=== PATIENT | female | born 1935 | race Caucasian/White ===

== ENCOUNTER → 2023-09-26 11:45 | Outpatient (REF) | payer MEDICARE, SELFPAY ==
[2023-09-26 12:44] LABS: % Eosinophils 7.8 % (0-6); % Immature Granulocytes 0.2 % (0-0.5); % Lymphocytes 27.8 % (20.5-51.1); % Monocytes 9.7 % (1.7-9.3); % Neutrophils 53.5 % (42.2-75.2); Absolute Basophils 0.1 10^3/uL (0-0.2); Absolute Eosinophils 0.5 10^3/uL (0-0.7); Absolute Lymphocytes 1.6 10^3/uL (1.2-3.4); Absolute Monocytes 0.6 10^3/uL (0.1-0.6); Absolute Neutrophils 3.1 10^3/uL (1.4-6.5); Hematocrit 36.5 % (37.0-47.0); Hemoglobin 12.1 g/dL (12.0-16.0); Mean Corp Hgb Conc. 33.2 g/dL (33.0-37.0); Mean Corpuscular Hgb 30.9 pg (27.0-31.0); Mean Corpuscular Volume 93.4 fL (81.0-99.0); Mean Platelet Volume 11.6 fL (7.4-10.4); Nucleated Red Blood Cells % 0 %; Platelet Count 256 10^3/uL (130-400); Red Blood Cell Count 3.91 10^6/uL (4.20-5.40); White Blood Cell Count 5.8 10^3/uL (4.8-10.8)
[2023-09-26 13:12] LABS: ALT (SGPT) 15 U/L (0-35); AST (SGOT) 25 U/L (14-36); Albumin 4.6 g/dl (3.5-5.0); Alkaline Phosphatase 59 U/L (38-126); Blood Urea Nitrogen 23 mg/dl (7-17); Calcium 10.3 mg/dl (8.4-10.2); Carbon Dioxide 23 mmol/L (22-30); Chloride 107 mmol/L (98-107); Glucose 100 mg/dl (70-99); Potassium 4.3 mmol/L (3.5-5.1); Sodium 138 mmol/L (135-145); Total Bilirubin 0.8 mg/dl (0.2-1.3); Total Protein 7.1 g/dl (6.3-8.2); eGFR 54.87
[2023-09-26 13:15] LABS: C-Reactive Protein < 5.00 mg/L (0.0-10.00)
[2023-09-26 14:46] LABS: Erythrocyte Sed Rate 24 mm/hour (0-20)
== END ==
LOC: REG 11:45
PROVIDERS: ATTENDING PHYSICIAN Internal Medicine; FAMILY PHYSICIAN Internal Medicine
DX: M05.79 Rheumatoid arthritis with rheumatoid factor of multiple sites without organ or systems involvement (principal); Z51.81 Encounter for therapeutic drug level monitoring
CPT/HCPCS: 36415; 80053; 85025; 85652; 86140

== ENCOUNTER → 2023-11-27 11:12 | Outpatient (REF) | payer MEDICARE, SELFPAY ==
[2023-11-27 12:57] LABS: TSH Reflex To Free T4 4.03 uIU/ml (0.47-4.68)
== END ==
LOC: REG 11:12
PROVIDERS: ATTENDING PHYSICIAN Hospitalist
DX: E03.9 Hypothyroidism, unspecified (principal)
CPT/HCPCS: 36415; 84443

== ENCOUNTER → 2024-01-01 08:19 | Outpatient (REF) | payer MEDICARE, SELFPAY ==
[2024-01-01 10:05] LABS: % Eosinophils 9.3 % (0-6); % Immature Granulocytes 0.4 % (0-0.5); % Monocytes 9.1 % (1.7-9.3); % Neutrophils 52.2 % (42.2-75.2); Absolute Basophils 0.1 10^3/uL (0-0.2); Absolute Eosinophils 0.5 10^3/uL (0-0.7); Absolute Lymphocytes 1.4 10^3/uL (1.2-3.4); Absolute Monocytes 0.5 10^3/uL (0.1-0.6); Absolute Neutrophils 2.7 10^3/uL (1.4-6.5); Hematocrit 38.2 % (37.0-47.0); Hemoglobin 12.2 g/dL (12.0-16.0); Mean Corp Hgb Conc. 31.9 g/dL (33.0-37.0); Mean Corpuscular Hgb 30.5 pg (27.0-31.0); Mean Corpuscular Volume 95.5 fL (81.0-99.0); Mean Platelet Volume 12.3 fL (7.4-10.4); Nucleated Red Blood Cells % 0 %; Platelet Count 236 10^3/uL (130-400); Red Cell Dist. Width 14.2 % (11.5-14.5); White Blood Cell Count 5.1 10^3/uL (4.8-10.8)
[2024-01-01 10:25] LABS: ALT (SGPT) 19 U/L (0-35); Albumin 4.2 g/dl (3.5-5.0); Alkaline Phosphatase 53 U/L (38-126); Blood Urea Nitrogen 19 mg/dl (7-17); Calcium 9.9 mg/dl (8.4-10.2); Carbon Dioxide 26 mmol/L (22-30); Chloride 107 mmol/L (98-107); Glucose 130 mg/dl (70-99); HDL Cholesterol 91 mg/dl; Potassium 4.4 mmol/L (3.5-5.1); Sodium 143 mmol/L (135-145); Total Bilirubin 0.7 mg/dl (0.2-1.3); Total Cholesterol 190 mg/dl (50-199); Total Protein 7.1 g/dl (6.3-8.2); eGFR 54.53
[2024-01-01 10:34] LABS: AST (SGOT) 28 U/L (14-36); LDL Cholesterol, Calculated 73 mg/dl; Triglyceride 131 mg/dl (10-149); Very Low Density Lipoprotein 26 mg/dl (0-30)
[2024-01-01 10:57] LABS: TSH 5.34 uIU/ml (0.47-4.68)
== END ==
LOC: REG 08:19
PROVIDERS: ATTENDING PHYSICIAN Nurse Practitioner
DX: E11.9 Type 2 diabetes mellitus without complications (principal); R53.83 Other fatigue; R73.02 Impaired glucose tolerance (oral); Z00.00 Encounter for general adult medical examination without abnormal findings; E78.5 Hyperlipidemia, unspecified
CPT/HCPCS: 36415; 80053; 80061; 82043; 82570; 83036; 84443; 85025

== ENCOUNTER → 2024-01-16 08:58 | Outpatient (REF) | payer MEDICARE, SELFPAY | LOC: WDC 08:58 | PROVIDERS: ATTENDING PHYSICIAN Nurse Practitioner | DX: N63.20 Unspecified lump in the left breast, unspecified quadrant (principal); N63.24 Unspecified lump in the left breast, lower inner quadrant | CPT/HCPCS: 76642; 77062; 77066 ==

== ENCOUNTER → 2024-03-27 08:54 | Outpatient (REF) | payer MEDICARE, SELFPAY ==
[2024-03-27 10:08] LABS: % Eosinophils 7.6 % (0-6); % Immature Granulocytes 0.3 % (0-0.5); % Lymphocytes 26.3 % (20.5-51.1); % Monocytes 8.4 % (1.7-9.3); % Neutrophils 55.4 % (42.2-75.2); Absolute Basophils 0.1 10^3/uL (0-0.2); Absolute Eosinophils 0.3 10^3/uL (0-0.7); Absolute Lymphocytes 0.9 10^3/uL (1.2-3.4); Absolute Monocytes 0.3 10^3/uL (0.1-0.6); Hematocrit 40.1 % (37.0-47.0); Hemoglobin 12.7 g/dL (12.0-16.0); Mean Corp Hgb Conc. 31.7 g/dL (33.0-37.0); Mean Corpuscular Hgb 29.5 pg (27.0-31.0); Mean Corpuscular Volume 93.3 fL (81.0-99.0); Mean Platelet Volume 11.4 fL (7.4-10.4); Nucleated Red Blood Cells % 0 %; Platelet Count 214 10^3/uL (130-400); Red Cell Dist. Width 13.8 % (11.5-14.5); White Blood Cell Count 3.6 10^3/uL (4.8-10.8)
[2024-03-27 11:19] LABS: Erythrocyte Sed Rate 11 mm/hour (0-20)
[2024-03-27 11:25] LABS: C-Reactive Protein < 5.00 mg/L (0.0-10.00)
[2024-03-27 11:42] LABS: ALT (SGPT) 17 U/L (0-35); AST (SGOT) 27 U/L (14-36); Albumin 4.3 g/dl (3.5-5.0); Alkaline Phosphatase 61 U/L (38-126); Blood Urea Nitrogen 15 mg/dl (7-17); Carbon Dioxide 27 mmol/L (22-30); Chloride 106 mmol/L (98-107); Glucose 151 mg/dl (70-99); Potassium 4.1 mmol/L (3.5-5.1); Sodium 142 mmol/L (135-145); Total Bilirubin 0.9 mg/dl (0.2-1.3); Total Protein 7.2 g/dl (6.3-8.2); eGFR 54.53
== END ==
LOC: REG 08:54
PROVIDERS: ATTENDING PHYSICIAN Internal Medicine; FAMILY PHYSICIAN Internal Medicine
DX: M05.79 Rheumatoid arthritis with rheumatoid factor of multiple sites without organ or systems involvement (principal); Z51.81 Encounter for therapeutic drug level monitoring
CPT/HCPCS: 36415; 80053; 85025; 85652; 86140

== ENCOUNTER 2024-09-12 14:25 | Emergency (ER) | payer MEDICARE, SELFPAY ==
[2024-09-12 14:27] VITALS: BP 178/84
--- NOTE | 2024-09-12 16:19 | ED.GENMED ---
History of Present Illness
General
Chief Complaint: Fall
Source: patient
Exam Limitations: none
Time Seen by Provider: 09/12/24 15:07
Nursing documentation reviewed up to this point in time: agreed with
History of Present Illness
History of Present Illness:
Patient is a 8-year-old female who presents to the ER for evaluation. Patient describes mechanical fall outside fell onto her face sustaining nose laceration, abrasion to left hand. She denies loss of consciousness. She is not on blood thinners.
She denies any headache / she c/o of nose pain and nosebleed from the right nares. Denies neck pain back pain. She is unsure of her last tetanus.
Past History
Past History
ED Past Medical History: HTN
ED Past Surgical History: Appendectomy, Orthopedic and Tonsilectomy
Social History
Tobacco: Non-smoker
Alcohol: None
Living: alone
Employment: Retired
Phy Exam
General Physical Exam
General Presentation: no apparent distress
General age: appears stated age
General Skin: warm and dry
General Habitus: elderly
General Mental: alert
General Hydration: appears well hydrated
ENT Exam
ENT Exam: other (+ tender to nose mild swellig to bridge of nose with 1 cm horizontal laceration to bridge of nose (partial thickness) right nares with bleeding )
Eye Exam
Eye Exam: PERRL, EOMI and other (+ ecchymosis to b/l inner eye region )
Eye Exam General: PERRL: bilateral and EOM intact: bilateral
Pupil Exam: Bilateral: round and reactive
Cardiovascular Exam
Cardiovascular Exam: regular rate/rhythm, no murmur and normal peripheral pulses
Pulmonary Exam
Pulmonary Exam: lungs clear and no respiratory distress
Neurological Exam
Neurological Exam: alert, oriented x3, no motor deficits and no sensory deficits
Musculoskeletal Exam
Musculoskeletal Exam: full ROM and other (Left hand along first metacarpal with distal radius ecchymotic and swollen with abrasion; abrasion to forehead no bony midline tenderness in cervical spine)
Skin Exam
Skin Exam: normal color and warm/dry
Psychiatric Exam
Psychiatric Exam: normal mood/affect
Course
Orders/Labs/Results
Orders:
Orders
09/12/24 15:56
CT Facial Bones W/o Iv Contras Urgent
Comment:
Reason For Exam: trauma
CT Head W/o Iv Contrast Urgent
Comment:
Reason For Exam: trauma
09/12/24 15:57
Wrist, Left 3 Views CR [CR Wrist - Left Min 3 Views] Urgent
Comment:
Reason For Exam: trauma
09/12/24 16:19
Hand, Left 3 View [CR Hand - Left Min 3 Views] Urgent
Comment:
Reason For Exam: trauma
09/12/24 16:27
Tetanus/Diphth/Acelpertussis [Adacel] 0.5 ml IM .ONCE ONE
09/12/24 17:22
Tranexamic Acid 250 mg TOPICAL NOW STA
09/12/24 17:24
Amoxicillin 875 mg/Clav 125 mg [Augmentin 875 mg/125 mg] 1 tablet PO NOW STA
Vital Signs
Initial and Last Documented VS:
Initial Vital Signs
Temp Pulse Resp BP Pulse Ox
98.3 F 82 16 178/84 98
09/12/24 14:27 09/12/24 14:27 09/12/24 14:27 09/12/24 14:27 09/12/24 14:27
Last Documented Vital Signs
Temp Pulse Resp BP Pulse Ox
98.3 F 82 18 164/82 97
09/12/24 14:27 09/12/24 18:30 09/12/24 18:30 09/12/24 18:30 09/12/24 18:30
Procedures
Laceration Closure
nose:
Status of Wound: clean
Size of Wound in cm: 1
Description of Wound Edges: sharp
Preparation: cleaned with saline
Revision/Debridement: irrigate-direct pressure
Type of Closure: Dermabond-skin glue
Nosebleed
Drug treatment: Epinephrine
Treatment: Merocel packing
Post treatment bleeding: none- good control
MDM/Problems Addressed
MDM/Problems Addressed:
Patient is an 88-year-old female who tripped and fell outside landing on her face hitting her hand. She has abrasion to forehead and superficial laceration to the bridge of nose. No loss of conscious no blood thinners. Patient does have a
comminuted displaced fracture of the nasal bones minimally displaced fracture of the base of the nasal spine and slight displaced fracture of the bony nasal septum. I evaluated nosebleed initially and used Per-Synephrine however still with
bleeding dripping down her pharynx
. Will attempt to pack with Merocel. With nasal fractures will treat with antibiotics. Patient has seen ENT Dr. Hall in the past. will plan to dc/ w/ follow up with ENT.
Pt reevaluated no no further bleeding family at bedside no acute distress stable for discharge home with outpatient follow-up.
*Radiology
Radiology exam reviewed: radiology read reviewed
*Pulse Oximetry
SaO2: 98
Oxygen Mode of Delivery: Room air
Patient hypoxic: no
*Critical Care Note
Total Time (30-74mins, 75-104mins- exclusive of procedures): Not Applicable
ED Attending Note
-
Portions of this chart may have been created with voice recognition software.� Occasional wrong word or��sound alike� substitutions may have occurred due to the inherent limitations of voice recognition software.
Discharge Plan
Departure
Patient Disposition: Home (Routine Discharge)
Date of Disposition: 09/12/24
Time of Disposition: 18:15
Patient with high blood pressure during this ER visit?: Yes
Condition: Fair
Covid-19: Not Applicable
Discharge Problem:
Fracture of nasal bone, nosebleed, Head injury
Instructions: Head injury in adults, Skin Abrasions (DC), Nose Fracture ED, BLOOD PRESSURE
Prescriptions:
New
amoxicillin-pot clavulanate 875-125 mg tablet
1 tab PO BID Qty: 14 0RF
No Action
fexofenadine 180 MG tablet
180 mg PO DAILYPRN PRN (Reason: allergies)
olmesartan [Benicar] 5 MG tablet
5 mg PO DAILY
Centrum Silver Women 1 EACH tablet
1 ea PO DAILY
artificial tears(hypromellose) 10 ML gel
1 drp BOTH EYES BID
magnesium hydroxide 30 ML suspension
30 ml PO DAILYPRN PRN (Reason: constipation) Qty: 0 0RF
latanoprost 0.005 % Drops
1 drp OPHTHALMIC (EYE) QPM
Patient Comments:
botheyes
epinephrine 0.3 mg/0.3 mL Auto-Injector
0.3 mg IM Q5-15M PRN (Reason: bee stings)
PreserVision AREDS-2 250-90-40-1 mg Capsule
1 tab PO BID
mupirocin 2 % ointment
1 applic topical BID Qty: 1 0RF
Patient Comments:
Patient administered this medication this morning @ 06:00. Patient started this medication on 06/01/22 in the morning.
naproxen sodium [Aleve] 220 mg Capsule
220 mg PO BID Qty: 1 0RF
Rx Instructions:
w/ food
Voltaren Gel
1 applic topical PRN PRN (Reason: pain) Qty: 1 0RF
Rx Instructions:
*NOT ON INCISION--use on thigh
aspirin 325 mg Tablet
325 mg PO DAILY Qty: 0 0RF
docusate sodium 100 mg Capsule
100 mg PO BID Qty: 1 0RF
sennosides [senna] 8.6 mg Tablet
17.2 mg PO BID Qty: 2 0RF
acetaminophen 325 mg Tablet
650 mg PO Q4HWA Qty: 2 0RF
tramadol 50 mg tablet
50 - 100 mg PO Q6H PRN (Reason: 1 tab moderate, 2 tabs if pain severe) Qty: 30 0RF
Rx Instructions:
Dx Orthopedic surgery
Ongoing therapy
post-op
gabapentin 300 mg capsule
300 mg PO HS Qty: 10 0RF
pantoprazole [Protonix] 40 mg tablet,delayed release (DR/EC)
40 mg PO HS Qty: 30 0RF
Referrals:
[facility] [Other]
Kodi Hall MD [Active, ENT]
UNKNOWN - PT DOES,NOT KNOW [Family Provider]
Activity Restrictions/Additional Instructions:
As discussed you do have nasal fractures of your nose. As discussed keep packing in place. Follow-up with ENT on Saturday. Please call to make an appointment for reevaluation of nosebleed and packing removal. Ice the affected areas for the next 24
hours 20 minutes at a time several times a day. You May take Tylenol for pain. Do not blow your nose.
In addition you have a small laceration to the bridge of your nose, skin adhesive was applied. Do not apply antibiotic ointment to this area this will break the glue down. Glue will fall off on its own within 5 to 7 days.
Return if any worsening of symptoms including bleeding. Family doctor in the next several days for reevaluation.Follow up also with your pcp in the next several days.
Interventions
Interventions:
*Risk Screen - Suicide Last Done: 09/12/24 14:27
*General Assessment Last Done: 09/12/24 15:25
*Neglect/Abuse Screening Last Done: 09/12/24 14:27
*ED- Fall Risk Assessment Last Done: 09/12/24 15:25
*Nursing Disposition Last Done: 09/12/24 18:30
ED-Musculoskeletal Assessment Last Done: 09/12/24 15:25
ED- Neurological Assessment Last Done: 09/12/24 15:25
ED-Skin Assessment Last Done: 09/12/24 15:25
Discharge Date and Time
Discharge Date/Time: 09/12/24 18:25
Print Language: [id number]
[2024-09-12] MEDS: AUGMENTIN 875 MG/125 MG 1 TABLET PO (17:30)
[2024-09-12] MEDS: TRANEXAMIC ACID 250 MG TOPICAL (17:45)
[2024-09-12] MEDS: ADACEL 0.5 ML IM (17:45)
[2024-09-12 18:30] VITALS: BP 164/82
== END 2024-09-12 18:25 | disposition home or self-care (01) ==
LOC: EMR 14:25
PROVIDERS: EMERGENCY PHYSICIAN Emergency Medicine
DX: S02.2XXA Fracture of nasal bones, initial encounter for closed fracture (principal); S01.21XA Laceration without foreign body of nose, initial encounter; S09.90XA Unspecified injury of head, initial encounter; W01.198A Fall on same level from slipping, tripping and stumbling with subsequent striking against other object, initial encounter; I10 Essential (primary) hypertension; Z23 Encounter for immunization
CPT/HCPCS: 99284; 12011; 30901; 90471; 70450; 70486; 73110; 73130; 90715

== ENCOUNTER → 2024-10-08 14:27 | Outpatient (REF) | payer MEDICARE, SELFPAY ==
[2024-10-08 15:37] LABS: Hematocrit 35.2 % (37.0-47.0); Hemoglobin 11.3 g/dL (12.0-16.0); Mean Corp Hgb Conc. 32.1 g/dL (33.0-37.0); Mean Corpuscular Volume 91.9 fL (81.0-99.0); Nucleated Red Blood Cells % 0 %; Platelet Count 219 10^3/uL (130-400); Red Cell Dist. Width 13.7 % (11.5-14.5)
[2024-10-08 16:02] LABS: ALT (SGPT) 92 U/L (0-35); AST (SGOT) 78 U/L (14-36); Albumin 4.5 g/dl (3.5-5.0); Alkaline Phosphatase 121 U/L (38-126); Blood Urea Nitrogen 25 mg/dl (7-17); Calcium 10.0 mg/dl (8.4-10.2); Carbon Dioxide 27 mmol/L (22-30); Chloride 106 mmol/L (98-107); Glucose 215 mg/dl (70-99); Potassium 4.4 mmol/L (3.5-5.1); Sodium 138 mmol/L (135-145); Total Protein 7.6 g/dl (6.3-8.2); eGFR 54.53
[2024-10-08 16:06] LABS: C-Reactive Protein 5.90 mg/L (0.0-10.00)
== END ==
LOC: REG 14:27
PROVIDERS: ATTENDING PHYSICIAN Internal Medicine; FAMILY PHYSICIAN Internal Medicine
DX: M05.79 Rheumatoid arthritis with rheumatoid factor of multiple sites without organ or systems involvement (principal); Z51.81 Encounter for therapeutic drug level monitoring
CPT/HCPCS: 36415; 80053; 85025; 85652; 86140

== ENCOUNTER → 2025-01-30 09:33 | Outpatient (REF) | payer MEDICARE, SELFPAY ==
[2025-01-30 10:52] LABS: Hematocrit 37.8 % (37.0-47.0); Hemoglobin 12.0 g/dL (12.0-16.0); Mean Corp Hgb Conc. 31.7 g/dL (33.0-37.0); Mean Corpuscular Volume 93.3 fL (81.0-99.0); Nucleated Red Blood Cells % 0 %; Platelet Count 227 10^3/uL (130-400); Red Cell Dist. Width 13.9 % (11.5-14.5)
[2025-01-30 12:15] LABS: Glycohemoglobin (HgbA1c) 6.0 % (4.0-5.9)
[2025-01-30 13:20] LABS: ALT (SGPT) 16 U/L (0-35); AST (SGOT) 23 U/L (14-36); Albumin 4.2 g/dl (3.5-5.0); Alkaline Phosphatase 75 U/L (38-126); Blood Urea Nitrogen 19 mg/dl (7-17); Calcium 10.1 mg/dl (8.4-10.2); Carbon Dioxide 28 mmol/L (22-30); Chloride 105 mmol/L (98-107); Glucose 132 mg/dl (70-99); HDL Cholesterol 79 mg/dl; LDL Cholesterol, Calculated 37 mg/dl; Potassium 4.1 mmol/L (3.5-5.1); Sodium 141 mmol/L (135-145); Total Protein 7.4 g/dl (6.3-8.2); Very Low Density Lipoprotein 24 mg/dl (0-30); eGFR 48.33
[2025-01-30 13:52] LABS: TSH 5.01 uIU/ml (0.47-4.68)
== END ==
LOC: REG 09:33
PROVIDERS: ATTENDING PHYSICIAN Nurse Practitioner
DX: Z00.00 Encounter for general adult medical examination without abnormal findings (principal); I10 Essential (primary) hypertension; E03.9 Hypothyroidism, unspecified; M06.9 Rheumatoid arthritis, unspecified; E11.9 Type 2 diabetes mellitus without complications
CPT/HCPCS: 36415; 80053; 80061; 83036; 84443; 85025